=== PATIENT | female | born 1930 | race Caucasian/White ===

== ENCOUNTER 2019-01-08 16:56 | Inpatient (IN) ==
[2019-01-08] MEDS ORDERED: FENTANYL IV ONE (17:10)
[2019-01-08 17:53] LABS: BASO# 0.05 X1000 (0.0-0.2); BASO% 0.6 % (0.0-0.8); EOS# 0.16 X1000 (0.0-0.7); EOS% 1.9 % (0.0-10.0); HEMOGLOBIN 10.9 g/dL (12.0-16.0); IMM GRAN# 0.03 X1000 (0.0-0.04); IMM GRAN% 0.4 % (0.0-0.5); LYMPH# 1.48 X1000 (1.2-3.4); LYMPH% 17.4 % (20.5-51.1); MCH 24.7 PG (27-31); MCHC 30.3 g/dL (33-37); MCV 81.4 FL (81-99); MONO# 0.81 X1000 (0.11-0.59); MONO% 9.5 % (1.7-9.3); MPV 10.2 FL (7.4-10.4); NEUT# 5.98 X1000 (1.4-6.5); NEUT% 70.2 % (42.2-75.2); PLT 491 X1000 (130-400); RBC 4.42 XMIL (4.2-5.4); RDW 14.5 % (11.5-14.5); WBC 8.51 X1000 (4.8-10.8)
--- NOTE | 2019-01-08 18:06 | Diag Imaging Result Doc PS360 ---
EXAM: XRAY PELVIS W/HIP 2-3VW LT HISTORY: L hip deformity TECHNIQUE: Pelvis and left hip, three views COMPARISON: 11/12/2017 FINDINGS: There is an intertrochanteric fracture to the left hip. Femoral head remains in the acetabulum. Femoral shaft is rotated and superiorly placed. Prior surgery to the right hip. Severe degenerative changes in the lower lumbar spine. IMPRESSION: Intertrochanteric fracture to the left hip Electronically signed by Jose Martin Cannon 01/08/2019 6:03 PM
[2019-01-08 18:07] LABS: INR 1.07; PTT 32.1 Seconds (22.3-41.8)
[2019-01-08] MEDS ORDERED: CATAPRES PO ONE (18:10)
[2019-01-08 18:12] LABS: URINE SOURCE CATH
[2019-01-08 18:24] LABS: AGAP 19; ALB/GLOB RATIO 1.3; ALBUMIN 4.6 g/dL (3.5-5.0); ALKALINE PHOSPHATASE 59 U/L (32-104); BUN 15 mg/dL (8-22); CALCIUM 9.6 mg/dL (8.8-10.2); CHLORIDE 92 mmol/L (98-107); COSMO 272; CREATININE 0.8 mg/dL (0.5-0.9); ESTIMATED GFR > 60; GLUCOSE 177 mg/dL (70-104); GOT 15 U/L (10-30); GPT 9 U/L (10-36); POTASSIUM 3.7 mmol/L (3.5-5.1); SODIUM 133 mmol/L (136-145); TCO2 22 mmol/L (25-35); TOTAL BILIRUBIN 0.33 mg/dL (0.20-1.00); TOTAL PROTEIN 8.2 g/dL (6.3-8.3)
[2019-01-08 18:32] LABS: BILIRUBIN URINE NEGATIVE (NEGATIVE); BLOOD URINE TRACE (NEGATIVE); COLOR YELLOW; GLUCOSE URINE TRACE mg/dL (NEGATIVE); KETONE URINE NEGATIVE (NEGATIVE); LEUKOCYTES URINE NEGATIVE (NEGATIVE); NITRITE URINE NEGATIVE (NEGATIVE); PH URINE 6.5; PROTEIN URINE 50 mg/dL (NEGATIVE); TURBIDITY URINE CLEAR (CLEAR); UR EPITHELIAL CELLS <10 /HPF (<10); URINE BACTERIA NEGATIVE /HPF; URINE RBC <10 /HPF (<10); URINE WBC <10 /HPF (<10); UROBILINOGEN URINE NORMAL (NORMAL)
--- NOTE | 2019-01-08 19:09 | Diag Imaging Result Doc PS360 ---
EXAM : CT HEAD/C-SPINE W/O CONTRAST HISTORY: fall, hit head, on blood thinners TECHNIQUE: 1. CT head without contrast 2. CT cervical spine without contrast COMPARISON: None. FINDINGS: Head: No parenchymal hemorrhage. No epidural or subdural hematoma. No subarachnoid hemorrhage. No mass identified on this noncontrasted exam. No hydrocephalus. No skull fracture. Complete opacification of the left maxillary sinus. Cervical spine: There is good alignment to the cervical spine. No precervical soft tissue swelling. No subluxation. No fracture. IMPRESSION: Head: No hemorrhage. No injury. Cervical spine: No acute fracture. This exam was performed using automated exposure control, adjustment of mA or kV according to patient size, and/or use of iterative reconstruction technique. Electronically signed by Jose Martin Cannon 01/08/2019 7:06 PM
--- NOTE | 2019-01-08 19:12 | Diag Imaging Result Doc PS360 ---
EXAM: CT PELVIS W/O CONTRAST HISTORY: Hip fracture TECHNIQUE: CT pelvis without contrast COMPARISON: Recent plain films FINDINGS: There is an intertrochanteric fracture to the left hip. The femoral head remains in the acetabulum. The femoral shaft is rotated and superiorly placed. There has been prior surgery to the right hip. Severe degenerative changes in the lower lumbar spine. IMPRESSION: Intertrochanteric fracture to the left hip. This exam was performed using automated exposure control, adjustment of mA or kV according to patient size, and/or use of iterative reconstruction technique. Electronically signed by Jose Martin Cannon 01/08/2019 7:10 PM
--- NOTE | 2019-01-08 19:13 | Diag Imaging Result Doc PS360 ---
EXAM: FEMUR MIN 2 VIEWS LEFT HISTORY: Fracture TECHNIQUE: Left femur, two views COMPARISON: None. FINDINGS: There is an intertrochanteric fracture to the left hip. The femoral head remains in the acetabulum. The femoral shaft is rotated and superiorly placed. Prior orthopedic replacement of the left knee. IMPRESSION: Intertrochanteric fracture to the left hip. Electronically signed by Jose Martin Cannon 01/08/2019 7:10 PM
--- NOTE | 2019-01-08 19:13 | Diag Imaging Result Doc PS360 ---
EXAM: KNEE 1-2 VIEWS-LEFT HISTORY: Fracture TECHNIQUE: Left knee, two views COMPARISON: None. FINDINGS: No fracture. No dislocation. There has been prior orthopedic replacement of the knee. Good alignment to the femoral and tibial components. IMPRESSION: No acute bony injury. Electronically signed by Jose Martin Cannon 01/08/2019 7:11 PM
--- NOTE | 2019-01-08 19:16 | Diag Imaging Result Doc PS360 ---
EXAM: CHEST-PORTABLE HISTORY: hip fx TECHNIQUE: Chest single view COMPARISON: 11/20/2018 FINDINGS: The lungs are well expanded. Mild increased interstitial markings. Heart is borderline mildly prominent. Scattered granuloma. Tiny left effusion. There are multiple old rib fractures. No pneumothoraces. IMPRESSION: Pulmonary edema. Electronically signed by Jose Martin Cannon 01/08/2019 7:13 PM
--- NOTE | 2019-01-08 19:27 | PROVIDER DOCUMENTATION ---
This chart was entered by Hien Vega Scribe, acting as scribe for Dread Greer CRNP. HPI-Musculoskeletal Pain/Inj - GENERAL Stated Complaint: FALL - HIP PAIN Time Seen by Provider: 01/08/19 17:01 Source: patient, EMS (first response) - HX OF PRESENT ILLNESS-MUSKULOSKELTAL Nature of Presenting Problem: 88 yowf presents to the ed via ems (first response) post fall while outside today. pt sts she tripped over the concrete and fell on left hip. pt has obvious deformity of left hip and skin tear to left elbow. pt sts hit her head but denies LOC. pt can not bear weight to LLE Quality of Pain: reports: aching Severity in ED: moderate Onset/Duration: just prior to arrival Timing: still present, intermittent Modifying Factors: improves with: immobilization. worse with: movement, palpation Any recent injury?: Yes (fall at home) Locality of Occurance: Home Similar Symptoms Previously?: No Recently seen or treated by another doctor?: No - FALL INJURY Location of Pain/Injury: reports: upper extremity (left elbow), lower extremity (left hip) Reason for Fall: reports: tripped Symptoms prior to fall:: reports: none Loss of Consciousness: no loss of consciousness Injury Associated Symptoms: reports: joint pain, snap/crack/pop sensation, unable to bear weight, trouble walking. denies: back/neck pain, chest pain, dizziness, headaches, nausea, shortness of breath, vomiting - HIP/PELVIS PAIN/INJURY Hip Pain Location: reports: hip (L) Context / Method of Injury: reports: fall Associated Symptoms: reports: denies symptoms - UPPER EXTREMITY PAIN/INJURY Extremities Pain Location: elbow: left (skin tear) Context / Method of Injury: reports: fell Associated Symptoms: reports: denies symptoms Review of Systems - Adult - REVIEW OF SYSTEMS - ADULT Constitutional: reports: no symptoms reported Eyes: denies: blurred vision, double vision Ears, Nose, Mouth & Throat: reports: no symptoms reported Cardiovascular: denies: chest pain, palpitations, syncope Respiratory: denies: cough, shortness of breath, wheezing Gastrointestinal: denies: abdominal pain, diarrhea, nausea, vomiting Genitourinary: reports: no symptoms reported Musculoskeletal: reports: see HPI (left hip/left elbow), joint pain. denies: back pain, neck pain Integumentary: reports: see HPI, other (skin tear noted left elbow) Neurological: denies: dizziness/vertigo, headache/migraines Psychiatric: reports: no symptoms reported Endocrine: reports: no symptoms reported Hematologic/Lymphatic: reports: no symptoms reported Allergic/Immunologic: reports: no symptoms reported All Other Systems: Reviewed and Negative Past History - Adult - PAST MEDICAL HISTORY-ADULT Review of Records: reports: Old Records Reviewed, Nursing Assessment Review, Medications Reviewed, Social history reviewed & non-contributory. Major Childhood Illnesses: reports: denies history Cardiovascular: reports: HTN, hyperlipidemia Respiratory: reports: denies history Gastrointestinal: reports: GERD Obstetrical/Gynecological: reports: denies history Genitourinary: reports: denies history Musculoskeletal: reports: denies history Neurological: reports: denies history Endocrine/Immune: reports: denies history Other Conditions: reports: other cancer (skin), deaf/hard of hearing - PRIOR SURGERIES/PROCEDURES Surgical/Procedure History: reports: orthopedic (extremity), joint replacement, back/neck - IMMUNIZATION STATUS Childhood Immunizations: See Nurse Assessment Flu Vaccine: See Nurse Assessment - FAMILY HISTORY Family History: reviewed, not pertinent - SOCIAL HISTORY Smoking: denies Substance Use: denies Alcohol Use Frequency: never Living Situation: family Physical Exam-Injury Related - Physical Exam-Injury Related Initial Vital Signs Reviewed: Yes General Appearance: alert, mild distress, obese Eyes: PERRL/EOMI, pink conjunctivae Head, Ears, Nose, Mouth & Throat: moist mucous membranes Neck: non-tender, full range of motion, supple, normal inspection Respiratory: chest non-tender, lungs clear, normal breath sounds Cardiovascular: normal peripheral pulses, regular rate, rhythm Chest/Breast: deferred Abdominal Exam: normal bowel sounds, non tender, soft Female Genitalia/Pelvic Exam: deferred Rectal Exam: deferred Hemoccult Exam: deferred Lymphatic: no adenopathy Back Exam: other (no exam done pt has obvious deformity to left hip and is lying on her back on the stretcher. pt has no complaint of back pain) Extremity: normal capillary refill, deformity (left hip), other (left elbow skin tear). negative: normal range of motion, normal gait, normal inspection Integumentary: normal color, warm/dry Neurologic: grossly normal Psych/Mental Status: normal mood/affect, normal thought content, normal thought process, oriented x 3 - Glascow Coma Score Best Eye Response (Pushpa): (4) open spontaneously Best Verbal Response (Pushpa): (5) oriented Best Motor Response (Pushpa): (6) obeys commands Pushpa Total: 15 Progress - PLAN OF CARE/RESULTS Progress/Plan/Lab Results: Vital Signs - 8 hr 01/08/19 17:15 01/08/19 17:16 01/08/19 17:19 Temperature 98.8 F Pulse Rate 83 83 82 Respiratory Rate 19 24 21 Blood Pressure 202/96 202/96 O2 Sat by Pulse Oximetry 93 L 94 L 01/08/19 17:31 01/08/19 17:45 01/08/19 18:00 Temperature Pulse Rate 82 78 87 Respiratory Rate 30 H 18 20 Blood Pressure O2 Sat by Pulse Oximetry 94 L 91 L 90 L Laboratory Results - last 24 hr 01/08/19 01/08/19 01/08/19 17:40 17:40 17:40 WBC 8.51 RBC 4.42 Hgb 10.9 L Hct 36.0 L MCV 81.4 MCH 24.7 L MCHC 30.3 L RDW Std Deviation 14.5 Plt Count 491 H MPV 10.2 Immature Gran % (Auto) 0.4 Neut % (Auto) 70.2 Lymph % (Auto) 17.4 L Dawson % (Auto) 9.5 H Eos % (Auto) 1.9 Baso % (Auto) 0.6 Immature Gran # (Auto) 0.03 Neut # (Auto) 5.98 Lymph # (Auto) 1.48 Dawson # (Auto) 0.81 H Eos # (Auto) 0.16 Baso # (Auto) 0.05 PT 14.0 INR 1.07 PTT (Actin FS) 32.1 Sodium 133 L Potassium 3.7 Chloride 92 L Carbon Dioxide 22 L Anion Gap 19 BUN 15 Creatinine 0.8 Estimated GFR/1.73 m2 > 60 BUN/Creatinine Ratio 19 Glucose 177 H Calculated Osmolality 272 Calcium 9.6 Total Bilirubin 0.33 AST 15 ALT 9 L Alkaline Phosphatase 59 Total Protein 8.2 Albumin 4.6 Globulin 3.6 Albumin/Globulin Ratio 1.3 Urine Source Urine Color Urine Turbidity Urine pH Ur Specific Totz Urine Protein Ur Glucose (Stick) Ur Ketones (Stick) Urine Blood Urine Nitrite Urine Bilirubin Urobilinogen Dipstick Urine Leukocytes Urine WBC (Auto) Urine RBC (Auto) U Epithel Cells (Auto) Urine Bacteria (Auto) Blood Type Antibody Screen 01/08/19 01/08/19 17:40 18:03 WBC RBC Hgb Hct MCV MCH MCHC RDW Std Deviation Plt Count MPV Immature Gran % (Auto) Neut % (Auto) Lymph % (Auto) Dawson % (Auto) Eos % (Auto) Baso % (Auto) Immature Gran # (Auto) Neut # (Auto) Lymph # (Auto) Dawson # (Auto) Eos # (Auto) Baso # (Auto) PT INR PTT (Actin FS) Sodium Potassium Chloride Carbon Dioxide Anion Gap BUN Creatinine Estimated GFR/1.73 m2 BUN/Creatinine Ratio Glucose Calculated Osmolality Calcium Total Bilirubin AST ALT Alkaline Phosphatase Total Protein Albumin Globulin Albumin/Globulin Ratio Urine Source CATH Urine Color YELLOW Urine Turbidity CLEAR Urine pH 6.5 Ur Specific Totz 1.010 Urine Protein 50 A Ur Glucose (Stick) TRACE Ur Ketones (Stick) NEGATIVE Urine Blood TRACE A Urine Nitrite NEGATIVE Urine Bilirubin NEGATIVE Urobilinogen Dipstick NORMAL Urine Leukocytes NEGATIVE Urine WBC (Auto) <10 Urine RBC (Auto) <10 U Epithel Cells (Auto) <10 Urine Bacteria (Auto) NEGATIVE Blood Type A POSITIVE Antibody Screen NEGATIVE Orders Category Date Time Status Meza's Traction Placement ONCE Care 01/08/19 18:26 Active Consent for Surgery DIRECTED Care 01/08/19 18:26 Active Gr Cath Insertion ORDERED Care 01/08/19 17:18 Active Ice Pack to affected area DIRECTED Care 01/08/19 18:26 Active NPO Except MEDICATIONS Diet 01/09/19 00:01 Active CHEST-PORTABLE [RAD] Stat Exams 01/08/19 18:[address] HEAD/C-SPINE W/O CONTRAST [CT] Stat Exams 01/08/19 17:[address] PELVIS W/O CONTRAST [CT] Stat Exams 01/08/19 17:55 Completed FEMUR MIN 2 VIEWS LEFT [RAD] Stat Exams 01/08/19 17:55 Completed KNEE 1-2 VIEWS-LEFT [RAD] Stat Exams 01/08/19 18:25 Completed XRAY PELVIS W/HIP 2-3VW LT [RAD] Stat Exams 01/08/19 17:11 Completed CBC WITH DIFF [HEME] Stat Lab 01/08/19 17:40 Completed COMPREHENSIVE METABOLIC PANEL [CHEM] Stat Lab 01/08/19 17:40 Completed PROTIME WITH INR [COAG] Stat Lab 01/08/19 17:40 Completed PTT [COAG] Stat Lab 01/08/19 17:40 Completed TYPE & SCREEN [BBK] Stat Lab 01/08/19 17:40 Completed URINALYSIS W/POSS RFLX CULT [URINALYSIS] Stat Lab 01/08/19 18:03 Completed Clonidine [Catapres] Med 01/08/19 18:10 Discontinued 0.1 mg PO NOW ONE Fentanyl Med 01/08/19 17:10 Discontinued 50 microgm IV NOW ONE EKG [EKG] Stat Ther 01/08/19 17:19 Ordered Result Diagrams: 01/08/19 17:40 01/08/19 17:40 - REASSESSMENT Reassessment #1 Time Reassessed: 18:09 (updated pt of results and need for admission. Pt made aware of NPO status after midnight) - XRAY 1 XRAY: Left XRAY Study: Femur Impression: See EMR Report (FINDINGS: There is an intertrochanteric fracture to the left hip. The femoral head remains in the acetabulum. The femoral shaft is rotated and superiorly placed. Prior orthopedic replacement of the left knee. IMPRESSION: Intertrochanteric fracture to the left hip. Electronically signed by Jose Martinchinyere Cannon 01/08/2019 7:10 PM) 2 XRAY: Left XRAY Study: Knee (FINDINGS: No fracture. No dislocation. There has been prior orthopedic replacement of the knee. Good alignment to the femoral and tibial components. IMPRESSION: No acute bony injury. Electronically signed by Jose Martinchinyere Cannon 01/08/2019 7:11 PM) 3 XRAY Study: Chest Impression: See EMR Report (FINDINGS: The lungs are well expanded. Mild increased interstitial markings. Heart is borderline mildly prominent. Scattered granuloma. Tiny left effusion. There are multiple old rib fractures. No pneumothoraces. IMPRESSION: Pulmonary edema. Electronically signed by Jose Martinchinyere Cannon 01/08/2019 7:13 PM) - CT/MRI 1 CT Study: Cervical Spine, Head Impression: See EMR Report (FINDINGS: Head: No parenchymal hemorrhage. No epidural or subdural hematoma. No subarachnoid hemorrhage. No mass identified on this noncontrasted exam. No hydrocephalus. No skull fracture. Complete opacification of the left maxillary sinus. Cervical spine: There is good alignment to the cervical spine. No precervical soft tissue swelling. No subluxation. No fracture. IMPRESSION: Head: No hemorrhage. No injury. Cervica l spine: No acute fracture. This exam was performed using automated exposure control, adjustment of mA or kV according to patient size, and/or use of iterative reconstruction technique. Electronically signed by Jose Martin Cannon 01/08/2019 7:06 PM) 2 CT Study: Pelvis Impression: See EMR Report (FINDINGS: There is an intertrochanteric fracture to the left hip. The femoral head remains in the acetabulum. The femoral shaft is rotated and superiorly placed. There has been prior surgery to the right hip. Severe degenerative changes in the lower lumbar spine. IMPRESSION: Intertrochanteric fracture to the left hip. This exam was performed using automated exposure control, adjustment of mA or kV according to patient size, and/or use of iterative reconstruction technique. Electronically signed by Jose Martin Cannon 01/08/2019 7:10 PM) - CONSULTS/PCP/HOSPITALIST Notification #1 *Consult/PCP/Hospitalist*: ortho dr bauer Time Discussed: 17:52 (admit hospitalist, NPO after midnight) Reason/Comments: phone consult Consult Disposition: Admit #2 Consult: ANAID Knox hospitalist Time Discussed: 18:09 (call back once the CMP is back) #3 Consult: Dr Varela Time Discussed: 19:27 Consult Disposition: Will see in ED, Admit Departure - Departure Date of Disposition Decision: 01/08/19 Time of Disposition Decision: 18:10 DIAGNOSIS: Hip fracture Qualifiers: Encounter type: initial encounter Fracture type: closed Laterality: left Qualified Code(s): S72.002A - Fracture of unspecified part of neck of left femur, initial encounter for closed fracture Disposition: ADMITTED INPATIENT Certified Medical Emergency: Emergent Condition: Fair Referrals and Follow-Ups: Marissa Vallejo MD [Primary Care Provider] - - Critical Care Note This patient required my direct & personal management of CC.: No Attestation - Physician/ BERNARDO Attestation Patient care was provided by Advanced Practice Provider:: Yes Advanced Practice Provider:: Dread Greer Advanced Practice Provider documentation review:: The Mid-level provider documentation, treatment plan and medical decision making was reviewed by the physician who agrees with all treatment and medical decision making by the MLP. The physician spent face to face time with patient:: No Advanced Practice Provider documentation review:: Supervising physician onsite and consulted in the evaluation and care of this patient. The physician did not have a face to face encounter with the patient. This chart was documented by the indicated scribe, (Hien Vega Scribe) and accurately reflects the services I performed and decisions made by , Dread Greer CRNP, as attested by the provider's signature.
--- NOTE | 2019-01-08 20:30 | ORTHOPAEDICS CONSULTATION ---
DATE: 01/08/2019 CONSULTING PHYSICIAN: [facility]. REASON FOR CONSULTATION: Left hip fracture. PAST MEDICAL HISTORY: 1. Hypertension. 2. Hyperlipidemia. 3. Hypothyroidism. 4. Diabetes type 2. 5. History of TIA in 2012. PAST SURGICAL HISTORY: 1. Closed reduction intramedullary nailing of right hip fracture about 6 years ago. 2. Bilateral total knee arthroplasties done by DR. Dorsey. 3. Right shoulder surgery with DR. Wong. 4. Lumbar spine surgery x2. MEDICATIONS: 1. Plavix to aspirin 81 mg. 2. Metformin. 3. See chart for remaining medications. ALLERGIES: Sulfa. SOCIAL HISTORY: The patient lives in [place] alone with her 2 cats. She is a community ambulator without assistive device. She still drives. She denies any tobacco or alcohol use. She is fairly active for her age. FAMILY HISTORY: Noncontributory. REVIEW OF SYSTEMS: Negative other than what is listed in history of present illness. CHIEF COMPLAINT: Left hip pain. HISTORY OF PRESENT ILLNESS: Ms. Teixeira is an 88-year-old lady who sustained a same-level fall implant around her driveway earlier this afternoon. She states she fell onto her left hip, unable to get up. She was then taken to the ER by ambulance where x-rays demonstrated left intertrochanteric femur fracture. Orthopedic surgery was thus consulted. The patient denies hitting her head or any loss of consciousness. She has no other complaints. She had a previous closed reduction and nailing of a hip fracture on the right side about 6 years ago in [place] and states she stayed at an inpatient rehab facility for about 5 or 6 weeks afterward regaining her strength but she is doing well with it now. PHYSICAL EXAMINATION: General: Ms. Teixeira is an 88-year-old female who appears well nourished, well developed, no acute distress. She is awake, alert, oriented x3. Very polite, cooperative during examination. Vital Signs: See chart. HEENT: Normocephalic and atraumatic. Respiratory: Nonlabored breathing. Cardiovascular: Regular rate and rhythm. Extremities: Examination of left lower extremity reveals skin to be intact. The patient has a shortened and externally rotated deformity of the left hip. She is tender to palpation around her hip. She has a well-healed surgical incision from her total knee replacement. She is nontender on her knee, leg, ankle and foot. Thigh and calf were soft and compressible. Motor is intact, EHL, tibialis anterior, gastrocsoleus complex. Sensation intact to light touch L3-S1. Dorsalis pedis pulse palpable and equal bilaterally. IMAGING: AP and lateral of the left hip were reviewed demonstrating a comminuted peritrochanteric femur fracture with shortening external rotation of the fracture site. LABORATORY DATA: Labs pending. ASSESSMENT: 88-year-old female with left peritrochanteric femur fracture. PLAN: 1. A long discussion was had with the patient regarding the diagnosis and treatment options. Given her fracture pattern, she is going to need open versus closed reduction and intramedullary nailing of her left hip fracture. The risks, benefits, alternative therapies were discussed with the patient regarding surgery. Risks of surgery include, but are not limited to risk of bleeding, infection, damage to nerves and vessels around the area, continued pain following surgery, malunion, nonunion, and need for revision surgery. There is also risk of anesthesia including blood clot, stroke, heart attack, even . The patient understands these risks. All questions were answered. Informed consent was obtained. 2. We will obtain a CT scan of the pelvis to help with preoperative planning. We will also get full-length femur films and knee films since she has a total knee arthroplasty on that side. 3. Admit to hospitalist. Appreciate recommendations and surgical clearance. 4. Make NPO at midnight tonight for planned surgery tomorrow afternoon as long she is cleared and OR space is available. 5. Meza's traction to the left lower extremity. 6. Ice the left lower extremity. 7. Hold Plavix and chemical anticoagulation.
[2019-01-08] MEDS ORDERED: MORPHINE IV PRN (21:27)
[2019-01-08] MEDS: ZOFRAN IV PRN (22:01)
--- NOTE | 2019-01-08 23:03 | HISTORY AND PHYSICAL ---
PRIMARY CARE PHYSICIAN: Dr. Marissa Vallejo. CHIEF COMPLAINT: Fall. HISTORY OF PRESENTING ILLNESS: An 88-year-old female with a history of hypertension, hyperlipidemia, diabetes mellitus type 2, and TIA, who apparently had a fall earlier today. She states that she was watering her strong and then somehow she fell and she landed on the concrete. She developed moderate amount of pain on left hip region. She was brought to the emergency department. She had imaging done which did show a left hip fracture. Her case was discussed with Orthopedics, who recommended admission for further management. At the time of my examination, patient denied any headache, fever, chills, chest pain, shortness of breath, hemoptysis or weight changes, but complained left hip pain. PAST MEDICAL HISTORY: Includes hypertension, hyperlipidemia, hypothyroidism, diabetes mellitus type 2, TIA. PAST SURGICAL HISTORY: Right hip nailing, bilateral total knee arthroplasty, right shoulder surgery, ankle surgery, cataract surgery. ALLERGIES TO: Sulfa. CURRENT MEDICATIONS: Lotrel 5-20 one p.o. at bedtime, spironolactone HCT 25 mg, 1 p.o. daily, aspirin 81 mg p.o. daily, Plavix 75 mg p.o. daily, levothyroxine 75 mcg p.o. q.a.m., metformin 500 mg p.o. b.i.d., metoprolol 75 mg p.o. q.a.m., omeprazole 40 mg p.o. daily, and pravastatin 40 mg p.o. at bedtime, Ambien 10 mg p.o. at bedtime. SOCIAL HISTORY: No history of smoking, alcohol or illicit drug use. FAMILY HISTORY: No history of coronary disease. REVIEW OF SYSTEMS: Fourteen-point review of systems is as in HPI. Other systems negative. PHYSICAL EXAMINATION: GENERAL: Cooperative, friendly female. She is resting more comfortably now. VITAL SIGNS: Temperature 98.8 degrees, pulse 82, respirations 21, blood pressure 202/96. HEENT: Extraocular movements intact. PERRLA. NECK: No masses. CHEST: Clear to auscultation. CARDIOVASCULAR: Regular rate and rhythm. ABDOMEN: Soft. Positive bowel sounds. EXTREMITIES: Left hip tenderness. NEUROLOGIC: She is awake, alert, oriented x2. GENITOURINARY: No bladder distention. SKIN: Warm. LABORATORIES AND STUDIES: WBCs 8.51, hemoglobin 10.9, hematocrit 36.0, platelets 491,000. Sodium 133, potassium 3.7, chloride 92, CO2 is 22, BUN is 15, creatinine 0.8. Glucose is 177. Pelvis CT shows intertrochanteric fracture of the left hip. ASSESSMENT: An 88-year-old elderly female with a history of hypertension, hyperlipidemia, diabetes mellitus type 2, who apparently had a fall earlier today. She was brought to the emergency department. She had imaging done which did show a left hip fracture. Subsequently, she will require admission for further management. 1. Status post mechanical fall. 2. Left hip fracture. 3. Diabetes mellitus type 2. 4. Hypertension. PLAN: 1. We will admit patient to medical floor with telemetry. 2. Continue with keeping patient NPO and giving her adequate pain control. 3. Orthopedics has already evaluated patient. 4. Monitor blood glucose and put the patient on sliding scale insulin regimen. 5. Monitor blood pressure. Resume antihypertensive agent. 6. We will put patient on deep venous thrombosis prophylaxis with sequential compression devises and Lovenox after her surgery. 7. We will continue to follow and reassess. Make further recommendation based on patient's clinical course. cc: Michael Varela MD
[2019-01-09] MEDS ORDERED: MORPHINE IV ONE (01:12)
[2019-01-09] MEDS ORDERED: OFIRMEV 1000 MG/ISOTONIC SOLN 1,000 MG/100 ML BOTTLE IV ONE (01:15)
[2019-01-09] MEDS: ZOFRAN IV PRN ×2 (01:50→20:59)
[2019-01-09] MEDS: MORPHINE IV PRN ×3 (05:41→13:18)
[2019-01-09 06:35] LABS: BASO# 0.02 X1000 (0.0-0.2); BASO% 0.2 % (0.0-0.8); EOS# 0.01 X1000 (0.0-0.7); EOS% 0.1 % (0.0-10.0); HEMATOCRIT 30.7 % (37.0-47.0); HEMOGLOBIN 9.3 g/dL (12.0-16.0); IMM GRAN# 0.03 X1000 (0.0-0.04); IMM GRAN% 0.3 % (0.0-0.5); LYMPH# 1.39 X1000 (1.2-3.4); LYMPH% 12.1 % (20.5-51.1); MCH 24.5 PG (27-31); MCHC 30.3 g/dL (33-37); MCV 80.8 FL (81-99); MONO# 0.94 X1000 (0.11-0.59); MONO% 8.2 % (1.7-9.3); MPV 10.5 FL (7.4-10.4); NEUT# 9.06 X1000 (1.4-6.5); NEUT% 79.1 % (42.2-75.2); PLT 421 X1000 (130-400); RDW 14.4 % (11.5-14.5); WBC 11.45 X1000 (4.8-10.8)
[2019-01-09 06:46] LABS: AGAP 14; BUN 12 mg/dL (8-22); CALCIUM 8.8 mg/dL (8.8-10.2); CHLORIDE 91 mmol/L (98-107); COSMO 263; CREATININE 0.7 mg/dL (0.5-0.9); ESTIMATED GFR > 60; GLUCOSE 167 mg/dL (70-104); POTASSIUM 4.1 mmol/L (3.5-5.1); SODIUM 129 mmol/L (136-145); TCO2 24 mmol/L (25-35)
[2019-01-09] MEDS: HUMULIN R SUBQ SCH (07:00)
[2019-01-09] MEDS ORDERED: FLU VACCINE IM ONE (08:17)
[2019-01-09] MEDS ORDERED: DIPRIVAN 1% ONE (15:11)
[2019-01-09] MEDS ORDERED: SUFENTA ONE (15:42)
[2019-01-09] MEDS ORDERED: KEFZOL 1 GM/D5W 1 GM/50 ML IVPB ONE (15:58)
[2019-01-09] MEDS ORDERED: DECADRON ONE (16:43)
[2019-01-09] MEDS ORDERED: ZOFRAN ONE ×2 (16:43→18:56)
[2019-01-09] MEDS ORDERED: SENSORCAINE 0.5%-EPI 1:200,000 ONE (17:41)
--- NOTE | 2019-01-09 17:41 | ORTHOPAEDICS PROGRESS NOTE ---
DATE: 01/09/2019 SUBJECTIVE: No acute events overnight. Patient states she is in a good bit of pain secondary to her hip fracture. She has been n.p.o. since midnight. She is ready for surgery. OBJECTIVE: General: No acute distress. Extremities: Left lower extremity shows skin intact. Patient has some ecchymosis over the lateral aspect of her thigh. Her thigh is swollen; however, soft and compressible. Nontender at her knee, leg, ankle, or foot. Motor intact, EHL, tibialis anterior, gastrocsoleus complex. Sensation intact to light touch L3-S1. Dorsalis pedis pulse palpable. LABS: White count 11.4, hematocrit 31. ASSESSMENT: An 88-year-old female with left comminuted intertrochanteric femur fracture. PLAN: 1. The patient has been n.p.o. since midnight. We will plan on open versus closed reduction and intramedullary nailing of her left intertrochanteric femur fracture this afternoon when OR is available. 2. Hold chemical DVT prophylaxis until postop. 3. Ice the left lower extremity. 4. Nonweightbearing of the left lower extremity until postop. 5. Disposition. manager recovery is talking with the patient about placement afterwards as she will likely need to go to a alf facility. They have talked with the [facility] and are waiting for availability for a bed.
[2019-01-09] MEDS ORDERED: MILK OF MAGNESIA PO PRN (18:22)
[2019-01-09] MEDS ORDERED: MORPHINE IV PRN (18:22)
[2019-01-09] MEDS ORDERED: NAROPIN 0.2% ONE (19:04)
--- NOTE | 2019-01-09 19:11 | Diag Imaging Result Doc PS360 ---
XRAY PELVIS W/HIP 2-3VW LT - 01/09/2019 INDICATION: Post op fracture. To be done in PACU TECHNIQUE: Two views COMPARISON: 01/08/2019 FINDINGS: There is a new left femoral neck stabilization evan. Alignment is anatomic. No hardware fracture or loosening. No dislocation. The right side is unremarkable. IMPRESSION: No complication. Electronically signed by Shakeel Castaneda 01/09/2019 7:08 PM
--- NOTE | 2019-01-09 20:13 | OPERATIVE NOTE ---
PROCEDURE DATE: 01/09/2019 PREOPERATIVE DIAGNOSIS: Left peritrochanteric femur fracture. POSTOPERATIVE DIAGNOSIS: Left peritrochanteric femur fracture. PROCEDURE: Open reduction and intramedullary nailing of left peritrochanteric femur fracture. ATTENDING SURGEON: Aguila Boss MD DOCTOR OF RADIOLOGY: ANAID Gastelum, whose assistance was needed for retraction, maintenance of reduction and placement of implants. ANESTHESIA: General endotracheal anesthesia. COMPLICATIONS: None. SPECIMENS: None. DRAINS: None. BLOOD LOSS: 150 mL. IMPLANTS: Synthes left-sided trochanteric femoral nail measuring 360 mm x 11 mm with a 95 mm blade. INDICATIONS FOR PROCEDURE: Ms. Teixeira is an 88-year-old lady who sustained the above injury after same-level fall 1 day prior. Given her fracture patterns, decision was made to proceed with open versus closed reduction, fixation with intramedullary nail. Risks, benefits, and alternative therapies were discussed with patient regarding surgery. Risks of surgery include, but are not limited to, risks of bleeding, infection, damage to nerves and vessels around the area, continued pain following surgery, need for revision surgery. There is also a risk of anesthesia including blood clot, stroke, heart attack, even . The patient understands these risks. All questions were answered. Informed consent was obtained. PROCEDURE IN DETAIL: Ms. Teixeira is identified by wrist band and greeted in preoperative holding area on 01/09/2019. Her left lower extremity, which was the operative site, was marked with indelible ink per [facility] Sign Your Site protocol. Following this, the patient was transferred back to the operating room for surgery. Upon entering the OR, general endotracheal anesthesia was induced on her bed. She then had bilateral feet placed in the boot holders for the [place] table and was transferred over to the [place] table in routine fashion. Her legs were placed in a scissor position. Traction was pulled on the left leg to help maintain reduction. Fluoroscopy was brought in to confirm length and alignment of the fracture and reduction. When we were satisfied with this, the left lower extremity was then prepped and draped in routine sterile fashion. Formal time-out was performed confirming correct patient, procedure, operative site, operative side, administration of perioperative antibiotics. Everyone was in agreement. Patient received 2 g of Ancef prior to incision. A 10 blade knife was used to make a standard 4 cm incision just proximal to the tip of the greater trochanter. Knife was used to dissect through skin, subcutaneous tissue, and a longitudinal split in the fascia. At this time, we then manipulated the fracture and attempted to place the guide pin; however, she had significant comminution along the peritrochanteric region and subtrochanteric region of the femur. Given this, we were unable to maintain reduction, and decision was made to open up the fracture to assist with reduction. A 8 cm incision was made on the lateral aspect of the thigh at the fracture site. IT band was incised. We then elevated vastus lateralis up anteriorly over the femur, and we were visualizing the fracture site. Once this was done, a bone hook was placed around the medial calcar cortex to help maintain reduction. At this time, we had better control of the fracture, and we were able to drive our guide pin down through our medial trochanteric starting point. When we were satisfied with positions of the guide pin, entry reamer was used to enter the canal. At this time the finger reduction tool and guidewire were then placed across the fracture site down the femur to the knee. A measuring device was used to measure the length of the nail, which was found to be 360 mm. At this time we then proceeded with reaming starting with a 12 mm reamer, taken down to the knee. Synthes 360 x 11 mm TFN nail was then opened and assembled on the back table. We then impacted the nail in position in routine fashion. Once it was driven down to the appropriate level, a guide pin was placed up into the femoral head in routine fashion. AP and lateral x-rays were taken confirming center placement of the pin in the head. When we were satisfied with the placement of the pin, it was measured and found to measure 105 mm. We thus opened the 95 mm helical blade. It was then impacted in place. At this time, we used a compression mechanism to gain some compression across the fracture site and the locking screw was taken down all the way and then loosened half a turn in order to make a dynamic fixed angle device. Once this was done, we then proceeded with placing a single distal interlocking screw in perfect [place] fashion. At this time final AP and lateral views of the hip, fracture site and distally at the knee were obtained and saved. All wounds were copiously irrigated with normal saline. We then proceeded with closure of the wound using 0 Vicryl suture for closure of the IT band, 2-0 Vicryl suture for subcutaneous tissue closure and jesus for skin closure, 30 mL of 0.25% Marcaine with epinephrine were then injected around all incision sites. Wounds were then dressed with Xeroform, 4x4s, [place] island dressing. At this time, patient was then transferred over hospital stretcher, extubated, and taken to recovery in stable condition. There were no acute complications during the procedure. All sponge and sharp counts were correct at conclusion of procedure.
[2019-01-09] MEDS ORDERED: NS 1,000 ML IV SCH (20:45)
--- NOTE | 2019-01-09 20:57 | PROGRESS NOTE ---
DATE: 01/09/2019 SUBJECTIVE: The patient is resting comfortably in bed. No acute events noted overnight. OBJECTIVE: Vital Signs: Temperature 98.6 degrees, blood pressure 137/65, heart rate 97, respirations 24, O2 saturation 94% on light nasal cannula. General: This is a chronically ill- appearing elderly female lying in bed in no acute distress. Heart: S1, S2 normal. Tachycardic. Lungs: Clear to auscultation bilaterally. Abdomen: Positive bowel sounds. Soft, nontender, nondistended. Extremities: No edema. No cyanosis. Neurologic: The patient is alert and oriented x3. LABORATORIES: White blood cell count 11, hemoglobin 9.3, hematocrit 30, platelets 421,000. Sodium 129, potassium 4.1, chloride 91, CO2 24, BUN 12, creatinine 0.7, glucose 167. ASSESSMENT AND PLAN: 1. Status post open reduction and intramedullary nailing of a left femur fracture. Management as per the orthopedic surgeon. 2. Hyponatremia. We will monitor the sodium closely. 3. Diabetes mellitus type 2. We will monitor the patient's blood sugars closely. Continue with sliding scale insulin. 4. Hypertension. Controlled. 5. Deep vein thrombosis prophylaxis. Continue with sequential compression devices. cc: Silvana John MD MTDD
[2019-01-09] MEDS: COLACE PO SCH (20:58)
[2019-01-09] MEDS: OXY IR PO PRN (20:58)
[2019-01-09] MEDS: XOPENEX NEB INH SCH (21:11)
[2019-01-09] MEDS ORDERED: NS 1,000 ML IV ONE (23:53)
[2019-01-10 00:15] LABS: HEMATOCRIT 26.9 % (37.0-47.0); HEMOGLOBIN 8.2 g/dL (12.0-16.0)
[2019-01-10] MEDS: HUMULIN R SUBQ SCH ×6 (00:17→22:07)
[2019-01-10] MEDS: ZOFRAN IV PRN (00:20)
[2019-01-10] MEDS: TYLENOL PO SCH ×4 (01:48→17:42)
--- NOTE | 2019-01-10 06:23 | Diag Imaging Result Doc PS360 ---
EXAM: CHEST-PORTABLE HISTORY: pulmonary edema TECHNIQUE: Portable chest single view COMPARISON: 01/08/2019 FINDINGS: The lungs are well expanded. The heart is not enlarged. Decreased pulmonary edema and left basilar infiltrates/atelectasis. There are no infiltrates. No effusion identified. IMPRESSION: Interval improvement Electronically signed by Jose Martin Cannon 01/10/2019 6:20 AM
[2019-01-10] MEDS: PRILOSEC PO SCH (06:24)
[2019-01-10 06:36] LABS: HEMATOCRIT 23.5 % (37.0-47.0); HEMOGLOBIN 7.1 g/dL (12.0-16.0); MCH 25.3 PG (27-31); MCHC 30.2 g/dL (33-37); MCV 83.6 FL (81-99); MPV 10.7 FL (7.4-10.4); RBC 2.81 XMIL (4.2-5.4); RDW 14.6 % (11.5-14.5); WBC 18.82 X1000 (4.8-10.8)
[2019-01-10 07:03] LABS: CALCIUM 7.5 mg/dL (8.8-10.2); CREATININE 1.8 mg/dL (0.5-0.9); POTASSIUM 4.4 mmol/L (3.5-5.1)
[2019-01-10] MEDS ORDERED: NS 1,000 ML IV SCH (07:30)
[2019-01-10 08:02] LABS: ALB/GLOB RATIO 1.1; ALBUMIN 3.3 g/dL (3.5-5.0); DIRECT BILIRUBIN 0.1 mg/dL (0.00-0.20); TOTAL BILIRUBIN 0.4 mg/dL (0.20-1.00); TOTAL PROTEIN 6.2 g/dL (6.3-8.3)
[2019-01-10 08:28] LABS: CK INDEX 2.9 (0.0-2.5); CK-MB 10.89 ng/mL (0.0-5.0)
[2019-01-10] MEDS ORDERED: FERROUS SULFATE PO SCH (09:00)
[2019-01-10 09:03] LABS: ALLEN TEST YES; BE -2.6 mmoll (-3.0-3.0); BLOOD TYPE ARTERIAL; HCO3-(ACT) 22.9 mmoll (20.0-26.0); METHB 0.2 % (0.0-1.5); O2(CT) 12.4 mL/dL (15.0-23.0); O2HB 97.6 % (95.0-99.0); PCO2(98.6) 33 mmHg (35-45); PO2(98.6) 96 mmHg (60-100); SAMPLE BLOOD; SAO2 99.9 % (95.0-100.0); THB 8.9 g/dL (11.5-17.4); pH(98.6) 7.42 (7.35-7.45)
[2019-01-10 09:04] LABS: MODALITY CANNULA
[2019-01-10] MEDS: MAXIPIME 1 GM in NS 50 ML IV SCH ×2 (09:42→20:10)
[2019-01-10] MEDS: MIRALAX PO SCH (09:43)
[2019-01-10] MEDS: ZYVOX 600 MG/D5W 600 MG/300 ML IVPB IV SCH ×2 (09:43→20:10)
[2019-01-10 10:06] LABS: FERRITIN 52 ng/mL (13-150)
[2019-01-10 10:18] LABS: IRON SATURATION 5 %; TIBC 308 ug/dL; TOTAL IRON 15 ug/dL (49-151); UNBOUND IRON 293 ug/dL (112-346)
[2019-01-10] MEDS ORDERED: FOLIC ACID PO ONE (10:40)
[2019-01-10 12:21] LABS: URINE SOURCE CATH
[2019-01-10 12:30] LABS: BILIRUBIN URINE NEGATIVE (NEGATIVE); BLOOD URINE MODERATE (NEGATIVE); COLOR ORANGE; GLUCOSE URINE NEGATIVE (NEGATIVE); KETONE URINE TRACE mg/dL (NEGATIVE); LEUKOCYTES URINE LARGE (NEGATIVE); NITRITE URINE NEGATIVE (NEGATIVE); PH URINE 5.5; PROTEIN URINE 100 mg/dL (NEGATIVE); SP GRAVITY URINE 1.018; TURBIDITY URINE TURBID (CLEAR); UROBILINOGEN URINE NORMAL (NORMAL)
[2019-01-10 12:32] LABS: UR EPITHELIAL CELLS >10 /HPF (<10); URINE BACTERIA 1+ /HPF; URINE RBC 20-40 /HPF (<10)
[2019-01-10 12:44] LABS: URINE CRYSTALS NONE SEEN; URINE YEAST NONE SEEN
[2019-01-10 12:49] LABS: UR CREAT RANDOM 146.7 mg/dL (11-20); UR PROT RANDOM 141.8 mg/dL
[2019-01-10] MEDS ORDERED: NS 0 ML ONE (12:52)
[2019-01-10 13:07] LABS: URINE WBC TNTC /HPF (<10)
[2019-01-10] MEDS: VITAMIN B-12 SL SCH (14:41)
[2019-01-10] MEDS: XOPENEX NEB INH SCH ×3 (15:13→21:03)
[2019-01-10] MEDS: OXY IR PO PRN (15:21)
--- NOTE | 2019-01-10 16:44 | Diag Imaging Result Doc PS360 ---
CT THORAX W/O CONTRAST - 01/10/2019 INDICATION: pulmonary edema/pneumonia COMPARISON: Prior chest x-rays FINDINGS: There is cardiomegaly. There is mild interstitial pulmonary edema bilaterally. No dense consolidations. Upper abdominal images are normal. There are moderate degenerative changes of the spine. No acute or suspicious bony lesion. IMPRESSION: Cardiomegaly. Mild interstitial pulmonary edema. This exam was performed using automated exposure control, adjustment of mA or kV according to patient size, and/or use of iterative reconstruction technique Electronically signed by Shakeel Castaneda 01/10/2019 4:42 PM
--- NOTE | 2019-01-10 17:17 | ECHO REPORT ---
ORDER DATE: 01/10/2019 INDICATION: An 88-year-old female, a patient of Dr. John (hospitalist), with hypertension, diabetes, TIA. The study was difficult. M-MODE MEASUREMENTS: Left ventricle end diastole: 4.4. Left ventricle end systole: 2.8. Posterior wall: Probably 1.0. Interventricular septum: Probably 1.0. Left atrium: 3.4. Aortic diameter: 3.1. SUMMARY OF 2-DIMENSIONAL IMAGIN. The study is very limited. Global left ventricular systolic function appears to be hyperdynamic. Ejection fraction is probably on the order of 70% to 75%. There is no wall motion abnormality noted. 2. The aortic valve shows a very mild degree of regurgitation. 3. The mitral valve is suboptimally visualized. Color flow mapping unremarkable. 4. Pulsed wave Doppler of mitral inflow is normal. 5. Tissue Doppler of septal and lateral mitral annulus averages 9 cm. There is no diastolic dysfunction. 6. The pulmonic valve is unremarkable. 7. The tricuspid valve shows a mild degree of regurgitation. Pulmonary pressure estimated at 43 mmHg. 8. There is a trace pericardial effusion, probably physiologic. 9. The atria appear to be mildly enlarged. Clinical correlation recommended. cc: MD Silvana Pennington MD
--- NOTE | 2019-01-10 18:35 | ORTHOPAEDICS PROGRESS NOTE ---
DATE: 01/10/2019 SUBJECTIVE: No acute events overnight. Patient is doing well. She reports significant pain in the hip when she is up mobilizing; however, otherwise is not having much pain. She is tolerating a diet. She has no other complaints. OBJECTIVE: Hematocrit 24. Vital signs stable. Extremities: Examination of left lower extremity shows dressing to be clean, dry, intact. The patient's thigh is soft and compressible. She is nontender to palpation over proximal thigh and surgical site. The calf is soft and compressible. Motor is intact, EHL, tibialis anterior, gastrocsoleus complex. Sensation intact to light touch L3-S1. Dorsalis pedis pulse palpable. IMAGING: Postop AP and lateral of the left hip were obtained in PACU showing good reduction in alignment of the fracture with hardware in good position. ASSESSMENT: 88-year-old female status post open reduction, intramedullary nailing, left hip fracture, postop day 1. PLAN: 1. Patient can be weightbearing as tolerated, left lower extremity. Physical therapy is to work with her on gait training and mobilization using assistive device. 2. Lovenox deep venous thrombosis prophylaxis. Okay to restart aspirin and Plavix from orthopedic standpoint. 3. Keep dressings clean, dry, intact x3 days. Following this, she can remove the dressing and wash around her incisions with soap and water. No soaking in a bathtub or submerging in a pool. 4. Appreciate hospitalist recommendations in medical management. 5. Disposition, per primary team. The patient is planning on being discharged to long-term facility when a bed is available. She can follow up with me in clinic in 2 weeks for wound check and follow-up x-rays.
[2019-01-10 18:37] LABS: CALCIUM 7.4 mg/dL (8.8-10.2); CREATININE 1.7 mg/dL (0.5-0.9); POTASSIUM 4.5 mmol/L (3.5-5.1)
[2019-01-10] MEDS ORDERED: LASIX IV ONE (18:46)
--- NOTE | 2019-01-10 19:43 | PROGRESS NOTE ---
DATE: 01/10/2019 SUBJECTIVE: The patient states that she had a rough night. She had an anxiety attack and states that her shortness of breath has not improved. OBJECTIVE: Vital Signs: Temperature 97.9 degrees, blood pressure 168/102, heart rate 95, respirations 16, O2 saturations 100% on 3 L nasal cannula. General: This is a chronically ill- appearing elderly female, resting in bed in no acute distress. Heart: S1, S2 normal. Tachycardic. Lungs: Coarse breath sounds bilaterally. Abdomen: Positive bowel sounds. Soft, nontender, nondistended. Extremities: No edema, no cyanosis. Neurologic: The patient is alert and oriented x4. LABORATORY DATA: White blood cell count 18, hemoglobin 7.1, hematocrit 23, platelets 385,000. Sodium 128, potassium 4.5, chloride 93, CO2 is 20, BUN 23, creatinine 1.7, glucose 276. Urinalysis shows large leukocytes, positive for bacteria. ASSESSMENT AND PLAN: 1. Acute hypoxemic respiratory failure. The patient has pulmonary edema on the CT scan. We will start the patient on diuretic therapy and continue with supplemental oxygen. 2. Acute pulmonary edema. An echocardiogram has been ordered. The patient will be given a trial of diuretic therapy. 3. Acute kidney injury. We will check urine studies. 4. Severe iron deficiency anemia. The patient will receive 1 unit of packed red blood cells today. We will also start iron supplementation. 5. Folate deficiency. We will start the patient on folic acid. 6. Vitamin B12 deficiency. We will start the patient on vitamin B12. 7. Urinary tract infection. Blood and urine cultures have been obtained. The patient has been started on antibiotic therapy. 8. Uncontrolled diabetes mellitus. We will start the patient on sliding scale insulin. 9. Status post open reduction and intramedullary nailing of the left femur fracture. Management as per the orthopedic surgeon. 10. Hyponatremia. We will monitor the patient's sodium closely. 11. Constipation. Continue with scheduled laxative therapy. 12. Deep venous thrombosis prophylaxis. Continue with sequential compression devices. We will defer to Lovenox or Xarelto as per the orthopedic surgeon. cc: Silvana John MD MTDD
[2019-01-10] MEDS: TOPROL XL PO SCH (20:09)
[2019-01-10] MEDS: ICAR-C PO SCH (20:09)
[2019-01-10] MEDS: COLACE PO SCH (20:10)
[2019-01-10] MEDS ORDERED: SYNTHROID PO SCH (21:00)
[2019-01-10] MEDS: NS NEB INH SCH (21:03)
[2019-01-10] MEDS: LANTUS INSULIN SUBQ SCH (22:08)
[2019-01-11] MEDS: TYLENOL PO SCH ×5 (02:26→18:35)
[2019-01-11 05:16] LABS: HEMATOCRIT 25.8 % (37.0-47.0); MCH 25.2 PG (27-31); MCV 81.4 FL (81-99); MPV 10.6 FL (7.4-10.4); RBC 3.17 XMIL (4.2-5.4); RDW 14.5 % (11.5-14.5); WBC 10.92 X1000 (4.8-10.8)
[2019-01-11 05:52] LABS: CALCIUM 7.4 mg/dL (8.8-10.2); CREATININE 1.2 mg/dL (0.5-0.9); POTASSIUM 3.7 mmol/L (3.5-5.1)
[2019-01-11] MEDS: PRILOSEC PO SCH (06:17)
[2019-01-11] MEDS: SYNTHROID PO SCH (06:17)
[2019-01-11] MEDS: HUMULIN R SUBQ SCH ×4 (06:25→20:21)
[2019-01-11] MEDS ORDERED: CALCIUM GLUCONATE 1 GM in NS 50 ML IV ONE (07:06)
--- NOTE | 2019-01-11 07:49 | Diag Imaging Result Doc PS360 ---
EXAM: CHEST-PORTABLE INDICATION: pulmonary edema TECHNIQUE: One view COMPARISON: 01/10/2019 FINDINGS: Mild chronic appearing interstitial thickening is stable. No new consolidation is identified. Cardiac silhouette is stable. IMPRESSION: Stable chest. Electronically signed by James Pacheco 01/11/2019 7:47 AM
[2019-01-11] MEDS ORDERED: LASIX PO ONE (07:51)
[2019-01-11] MEDS: XOPENEX NEB INH SCH ×3 (08:13→22:01)
--- NOTE | 2019-01-11 08:38 | ORTHOPAEDICS PROGRESS NOTE ---
DATE: 01/11/2019 SUBJECTIVE: The patient is a pleasant 88-year-old female, who is 2 days status post intramedullary nailing of the left femur for a left peritrochanteric femur fracture per Dr. Boss. She is currently resting comfortably. PHYSICAL EXAMINATION: Patient's left lower extremity dressing is intact. Her calf is soft. She has active dorsiflexion, plantar flexion. She is grossly neurovascularly intact. LABS: Her hemoglobin is 8.0, hematocrit is 25.8. IMPRESSION: Postoperative day #2 status post intramedullary nailing of the left femur. PLAN: At this point, patient will continue progressive physical therapy. Will allow weight bearing as tolerated left lower extremity. Anesthesiology Teacher have been consulted for discharge planning for inpatient rehabilitation. We will change her dressing today. cc: Tae Wong MD MTDD
[2019-01-11] MEDS: VITAMIN B-12 SL SCH (08:45)
[2019-01-11] MEDS: TOPROL XL PO SCH ×2 (08:45→20:08)
[2019-01-11] MEDS: ZYVOX 600 MG/D5W 600 MG/300 ML IVPB IV SCH (08:45)
[2019-01-11] MEDS: MAXIPIME 1 GM in NS 50 ML IV SCH ×2 (08:45→20:07)
[2019-01-11] MEDS: MIRALAX PO SCH (08:45)
[2019-01-11] MEDS: FOLIC ACID PO SCH (08:46)
[2019-01-11] MEDS: ICAR-C PO SCH ×2 (08:46→20:08)
[2019-01-11] MEDS: LANTUS INSULIN SUBQ SCH ×2 (08:54→20:21)
[2019-01-11] MEDS ORDERED: CARDIZEM IV ONE (17:44)
[2019-01-11] MEDS: CARDIZEM 125 MG/D5W 125 MG/125 ML IVPB IV SCH (17:53)
--- NOTE | 2019-01-11 18:08 | PROGRESS NOTE ---
DATE: 01/11/2019 SUBJECTIVE: The patient is sitting up in bed. She states that she feels a lot better today than she did yesterday. OBJECTIVE: Vital Signs: Temperature 98.6, blood pressure 156/74, heart rate 83, respirations 18, O2 saturation 99% on 2 L nasal cannula. General: This is a flucxntunah-oyw-fovzewyin elderly female sitting up in bed in no acute distress. Heart: S1, S2 normal. Regular rate and rhythm. Lungs: Equal air entry bilaterally. No wheezing. No rales. Abdomen: Positive bowel sounds. Soft, nontender, nondistended. Extremities: Trace pedal edema. Neurologic: The patient is alert and oriented x4. LABS: White blood cell count 10, hemoglobin 8, hematocrit 25, platelets 321. Sodium 132, potassium 3.7, chloride 94, CO2 22, BUN 20, creatinine 1.2, glucose 160. Chest x-ray showed a stable chest. ASSESSMENT AND PLAN: 1. Acute hypoxemic respiratory failure. Slowly improving. Continue diuretic therapy. 2. Acute pulmonary edema. Improved. Continue on Lasix. 3. Acute kidney injury. Improved. 4. Deficiency anemia. Stable. Continue with iron supplementation. 5. Folate deficiency. Continue on folic acid. 6. Vitamin B12 deficiency. Continue on vitamin B12 replacement. 7. Urinary tract infection. The urine culture is growing gram-negative rods. Continue on antibiotic therapy. 8. Diabetes mellitus. Continue on sliding-scale insulin. 9. Status post open reduction and intramedullary nailing of left femur fracture. Management as per the orthopaedic surgeon. 10. Hyponatremia. Improved. 11. Constipation. Continue with laxative therapy. 12. Hypothyroidism. Continue on Synthroid. 13. Hypocalcemia. Will replace the patient's calcium. 14. Deep venous thrombosis prophylaxis. Will start the patient on Lovenox. cc: Silvana John MD MTDD
[2019-01-11] MEDS ORDERED: LOVENOX SUBQ SCH (20:00)
[2019-01-11] MEDS: COLACE PO SCH (20:08)
[2019-01-12] MEDS: CARDIZEM 125 MG/D5W 125 MG/125 ML IVPB IV SCH (02:45)
[2019-01-12] MEDS: TYLENOL PO SCH ×4 (02:46→17:59)
[2019-01-12] MEDS: PRILOSEC PO SCH ×2 (05:32→06:38)
[2019-01-12] MEDS: SYNTHROID PO SCH ×2 (05:32→06:38)
[2019-01-12 05:42] LABS: HEMATOCRIT 27.8 % (37.0-47.0); HEMOGLOBIN 8.4 g/dL (12.0-16.0); MCH 25.2 PG (27-31); MCHC 30.2 g/dL (33-37); MCV 83.5 FL (81-99); MPV 10.6 FL (7.4-10.4); RBC 3.33 XMIL (4.2-5.4); RDW 14.9 % (11.5-14.5); WBC 11.01 X1000 (4.8-10.8)
[2019-01-12 06:09] LABS: AGAP 17; BUN 17 mg/dL (8-22); CALCIUM 7.6 mg/dL (8.8-10.2); CHLORIDE 93 mmol/L (98-107); COSMO 273; CREATININE 0.8 mg/dL (0.5-0.9); ESTIMATED GFR > 60; GLUCOSE 153 mg/dL (70-104); POTASSIUM 3.4 mmol/L (3.5-5.1); SODIUM 134 mmol/L (136-145); TCO2 24 mmol/L (25-35)
[2019-01-12] MEDS: HUMULIN R SUBQ SCH ×4 (06:38→21:38)
[2019-01-12 07:02] LABS: MAGNESIUM 1.3 mg/dL (1.5-2.7)
[2019-01-12] MEDS ORDERED: MAGNESIUM SULFATE 4 GM/S.W.I. 4 GM/100 ML IVPB IV ONE (07:30)
[2019-01-12] MEDS: LANTUS INSULIN SUBQ SCH ×2 (08:29→21:39)
[2019-01-12] MEDS: MIRALAX PO SCH (08:29)
[2019-01-12] MEDS: MAXIPIME 1 GM in NS 50 ML IV SCH ×2 (08:29→21:59)
[2019-01-12] MEDS: VITAMIN B-12 SL SCH (08:30)
[2019-01-12] MEDS: TOPROL XL PO SCH ×2 (08:30→21:36)
[2019-01-12] MEDS: ICAR-C PO SCH ×2 (08:30→21:36)
[2019-01-12] MEDS: FOLIC ACID PO SCH (08:30)
[2019-01-12] MEDS: NEUTRA-PHOS PO SCH ×4 (08:30→21:38)
[2019-01-12] MEDS ORDERED: KLOR-CON PO ONE (09:00)
[2019-01-12] MEDS: XOPENEX NEB INH SCH ×3 (09:01→22:02)
--- NOTE | 2019-01-12 09:01 | EKG Report ---
Test Performed on : 01/11/2019 5:40:07 PM Test Reason : EKG Changes Blood Pressure : / mmHG Vent. Rate : 135 BPM Atrial Rate : 120 BPM P-R Int : 000 ms QRS Dur : 090 ms QT Int : 310 ms P-R-T Axes : 000 012 199 degrees QTc Int : 465 ms Atrial fibrillation. with rapid ventricular response. Marked ST abnormality, possible inferior subendocardial injury Marked ST abnormality, possible anterior subendocardial injury Abnormal ECG When compared with ECG of 22-NOV-2016 21:54, Atrial fibrillation. has replaced Sinus rhythm. ST now depressed in Inferior leads ST now depressed in Lateral leads T wave inversion now evident in Inferior leads T wave inversion now evident in Anterolateral leads Confirmed by Megan BALDERAS, Yonas Simeon ([id number]) on 01/12/2019 9:42:30 PM
--- NOTE | 2019-01-12 09:58 | ORTHOPAEDICS PROGRESS NOTE ---
DATE: 01/12/2019 SUBJECTIVE: Patient was 88-year-old female who is 3 days status post intramedullary nailing of the left femur for left peritrochanteric femur fracture per Dr. Boss. She is resting comfortably this morning. She is awake alert. PHYSICAL EXAMINATION: The left lower extremity dressing is intact. Calf is soft. Active dorsiflexion, plantar flexion. Her hemoglobin is 8.4 hematocrit is 27.8. IMPRESSION: Postoperative day #3 status intramedullary nailing of the left femur. PLAN: At this point, patient continue mobilization with to weight bearing as tolerated. She is stable from an orthopedic standpoint and anticipate discharge for inpatient rehabilitation tomorrow. cc: Tae Wong MD MTDD
[2019-01-12] MEDS ORDERED: CARDIZEM PO SCH (13:12)
[2019-01-12] MEDS ORDERED: LASIX PO ONE (13:17)
[2019-01-12] MEDS: CARDIZEM PO SCH ×2 (13:41→21:37)
--- NOTE | 2019-01-12 13:43 | CARDIOLOGY CONSULTATION ---
DATE: 01/12/2019 REASON FOR CONSULTATION: Cardiology was consulted for new onset atrial fibrillation. Patient was started on a Cardizem drip. HISTORY OF PRESENT ILLNESS: Patient today feels better. Does not complain of any palpitations. There is no dizziness. Denies chest pain. The patient has a history of hypertension, hyperlipidemia, diabetes type 2, TIA. She fell and came to the emergency room, while she was watering her strong. She developed pain in her left hip. X-ray revealed a left hip fracture. From a cardiac standpoint, no previous cardiac history. She has not had any coronary artery disease. There is no history of having had chest pains. There is no history of palpitations. During her recent hospitalization, she had an episode of shortness of breath where was a chest x- ray revealed heart failure and she was given Lasix symptomatically. She has improved. She also states that while this happened, she was not complaining of any significant shortness of breath. She underwent surgery on 01/09/2019 with open reduction and intramedullary nailing of the left peritrochanteric femur fracture. PAST MEDICAL HISTORY: 1. Hypertension. 2. Hyperlipidemia. 3. Diabetes. 4. TIA. 5. Hypothyroidism. 6. 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 7. Cataract surgery. 8. Ankle surgery. 9. Right shoulder surgery. ALLERGIES: She is allergic to sulfonamides. HOME MEDICATIONS: Include Lotrel 5/20, spironolactone 25, Plavix 75, levothyroxine 75, metformin 500 b.i.d., metoprolol 75 q.a.m., omeprazole 40, pravastatin 40. REVIEW OF SYSTEMS: A 14-point review of systems was done. GI System: There is no history of nausea, vomiting, or diarrhea. There is no history of hematemesis or melena. Central Nervous System: No focal weakness to suggest a CVA or TIA. Genitourinary System: There is no dysuria or hematuria. PHYSICAL EXAMINATION: Vital Signs: Blood pressure 111/68. First and second heart sounds were heard. There was no S3 gallop. Respiratory System: Normal air entry. There is no crepitations or rhonchi. Abdomen: Soft, nontender. Central Nervous System: Alert and oriented, was moving all 4 extremities. ASSESSMENT: Ms. Rama Teixeira is an 88-year-old, lady who has sustained a hip fracture and underwent surgery. Has history of transient ischemic attack, hypertension, diabetes. No previous cardiac history. She went into atrial fibrillation with rapid ventricular rate. Currently, she is on a Cardizem drip. She denies any chest pain. Her electrocardiogram revealed atrial fibrillation with nonspecific ST-T changes in the anterior leads with ST depression. This could be secondary to the atrial fibrillation. I do not have an admission electrocardiogram at this time to compare with to see if she had these ST depressions before. However, this atrial fibrillation is new. PLAN: 1. We will discontinue the Cardizem drip. Start her on Cardizem p.o. 60 mg 3 times a day. 2. We will check 2 sets of cardiac enzymes to make sure there is no ischemia or infarction. 3. She had an episode of heart failure, was given Lasix. Currently euvolemic. I have not made any changes. 4. The last echocardiogram on 01/10/2019 revealed an ejection fraction of 70 to 75 percent. This was a limited study. There are no significant valvular abnormalities noted. 5. For hypertension, she was on Lotrel. Currently, blood pressure is on the lower side. We will see how she does with the Cardizem. She is also on metoprolol 50 b.i.d. We will adjust dosages if required. 6. I had a detailed discussion pertaining to anticoagulation therapy. She has had a history of stroke in the past and I will put her on Eliquis 2.5 mg to be taken twice daily, adjusted for age and weight. 7. Diabetes. Continue with insulin. 8. Recent fracture, status post surgery for same. Patient complains of soreness at the site of surgery. 9. The laboratory examination revealed hemoglobin 8.4, hematocrit 27.8, platelet count of 388,000. Would recommend keeping a watch on the CBC given the fact that we are starting her on Eliquis. Sodium 132, potassium 3.5, BUN 20, creatinine 1.2, GFR 42. 10. Her BUN and creatinine have improved. 11. She had an episode of diastolic heart failure. Currently euvolemic. At that time, she was apparently in sinus rhythm, looking at her telemetry strips. Her magnesium was 1.3, which has been repleted. Thank you for the consult. We will follow hospital course. cc: David Metzger MD
--- NOTE | 2019-01-12 13:58 | PROGRESS NOTE ---
DATE: 01/12/2019 SUBJECTIVE: The patient is sitting up, eating breakfast. She states that she feels fine. She denies having any chest pain or palpitations. She is currently on a Cardizem drip. OBJECTIVE: Vital Signs: Temperature 97.8 degrees, blood pressure 98/70, heart rate 75, respirations 18, O2 saturation is 100% on 2 L nasal cannula. Intake 1.3 L, output 3.3 L. General: This is a chronically ill-appearing, elderly female, lying in bed in no acute distress. Heart: S1, S2 normal. Irregularly irregular rhythm. Lungs: Diminished breath sounds at the bases. No wheezing. No rales. Abdomen: Positive bowel sounds. Soft, nontender, nondistended. Extremities: There is 1+ edema bilaterally. Neurologic: The patient is alert and oriented x4. LABORATORY DATA: Hemoglobin 8.4, hematocrit 27, white blood cell count 11, platelets 388,000. Sodium 134, potassium 3.4, chloride 93, CO2 of 24, BUN 17, creatinine 0.8, glucose 153, calcium 7.6. Phosphorus 2, magnesium 1.3. ASSESSMENT AND PLAN: 1. Acute hypoxemic respiratory failure. Slowly improving. Will continue to try and wean the patient off of supplemental oxygen. 2. Acute pulmonary edema. Slowly improving. Continue with diuretic therapy. 3. Folate deficiency. Continue on folic acid replacement. 4. Vitamin B12 deficiency. Continue with vitamin B12 replacement. 5. Urinary tract infection secondary to Escherichia coli. Continue on cefepime. 6. Atrial fibrillation. The patient is currently on a Cardizem drip. She is also on Toprol-XL. Will await further recommendations from the corner trimmer operator. 7. Hypomagnesemia. Will replace the patient's magnesium. 8. Hypokalemia. Will replace the patient's potassium. 9. Hypothyroidism. Continue on Synthroid. 10. Constipation. Continue with scheduled laxative therapy. 11. Status post open reduction and intramedullary nailing of the left femur fracture. Management as per the orthopedic surgeon. 12. Diabetes mellitus type 2. Continue on sliding scale insulin. 13. Deep vein thrombosis prophylaxis. Continue on Lovenox. 14. Continue with physical therapy. The patient will need inpatient rehab placement once she is medically stable. We will consult with Dual Rate Supervisor for assistance with placement. cc: Silvana John MD [facility]
[2019-01-12 15:07] LABS: CK-MB 3.73 ng/mL (0.0-5.0)
[2019-01-12] MEDS: ELIQUIS PO SCH (21:37)
[2019-01-12] MEDS: COLACE PO SCH (21:37)
[2019-01-12 21:42] LABS: CK INDEX 0.9 (0.0-2.5); CK-MB 2.99 ng/mL (0.0-5.0)
[2019-01-13] MEDS: TYLENOL PO SCH ×3 (02:51→18:31)
[2019-01-13] MEDS: HUMULIN R SUBQ SCH ×4 (06:17→21:16)
[2019-01-13] MEDS: SYNTHROID PO SCH (06:17)
[2019-01-13] MEDS: PRILOSEC PO SCH (06:17)
--- NOTE | 2019-01-13 06:38 | Diag Imaging Result Doc PS360 ---
EXAM: CHEST-PORTABLE HISTORY: pulmonary edema TECHNIQUE: Chest single view COMPARISON: 01/11/2019 FINDINGS: The lungs are well expanded. The heart is not enlarged. The vessels are not distended. There are no infiltrates. No effusion identified. Scattered granuloma. IMPRESSION: Negative exam. Electronically signed by Jose Martin Cannon 01/13/2019 6:36 AM
[2019-01-13 07:08] LABS: AGAP 9; BUN 18 mg/dL (8-22); CALCIUM 7.8 mg/dL (8.8-10.2); CHLORIDE 95 mmol/L (98-107); COSMO 265; CREATININE 0.7 mg/dL (0.5-0.9); ESTIMATED GFR > 60; GLUCOSE 146 mg/dL (70-104); POTASSIUM 4.3 mmol/L (3.5-5.1); SODIUM 130 mmol/L (136-145); TCO2 26 mmol/L (25-35)
[2019-01-13 07:09] LABS: BASO# 0.01 X1000 (0.0-0.2); BASO% 0.1 % (0.0-0.8); EOS# 0.08 X1000 (0.0-0.7); EOS% 0.9 % (0.0-10.0); HEMATOCRIT 26.4 % (37.0-47.0); HEMOGLOBIN 7.9 g/dL (12.0-16.0); IMM GRAN# 0.03 X1000 (0.0-0.04); IMM GRAN% 0.3 % (0.0-0.5); LYMPH# 1.75 X1000 (1.2-3.4); LYMPH% 18.7 % (20.5-51.1); MCH 25.2 PG (27-31); MCHC 29.9 g/dL (33-37); MCV 84.3 FL (81-99); MONO% 12.8 % (1.7-9.3); MPV 10.3 FL (7.4-10.4); NEUT# 6.29 X1000 (1.4-6.5); NEUT% 67.2 % (42.2-75.2); PLT 438 X1000 (130-400); RBC 3.13 XMIL (4.2-5.4); RDW 15.4 % (11.5-14.5); WBC 9.36 X1000 (4.8-10.8)
[2019-01-13 07:15] LABS: MAGNESIUM 2.3 mg/dL (1.5-2.7); PHOSPHORUS 2.7 mg/dL (2.7-4.5)
[2019-01-13] MEDS: ROCEPHIN 1 GM in NS 50 ML IV SCH (08:37)
[2019-01-13] MEDS: LANTUS INSULIN SUBQ SCH ×2 (08:37→21:17)
--- NOTE | 2019-01-13 08:37 | ORTHOPAEDICS PROGRESS NOTE ---
DATE: 01/13/2019 SUBJECTIVE DATA: Ms. Teixeira is postop day 4 from an intramedullary nailing of the left femur. She is doing very well. She states she is not having any hip pain. She is answering questions appropriately. OBJECTIVE DATA: Left lower extremity exam, the incision is clean, dry, and intact. She is able to dorsi and plantar flex the foot. She is currently in atrial fibrillation. Her hemoglobin and hematocrit this morning are 7.9 and 26.4. IMPRESSION: Postoperative day 4 status post intramedullary nailing of the left femur. PLAN: I really want Ms. Teixeira working with physical therapy. She states she has not been up much. She can be full weightbearing as tolerated to this left side. From an orthopedic standpoint, she is ready for discharge. It sounds like she is awaiting an inpatient rehabilitation bed. She will follow up with Dr. Boss in 12-14 days. They can get her jesus out at the rehab in 14 days. If there is any question or concern, they are welcome to call the office. Dictated by ANAID Kendrick for Aguila Boss MD cc: ANAID Kendrick
[2019-01-13] MEDS: ICAR-C PO SCH ×2 (08:38→21:15)
[2019-01-13] MEDS: FOLIC ACID PO SCH (08:38)
[2019-01-13] MEDS: NEUTRA-PHOS PO SCH ×4 (08:38→21:15)
[2019-01-13] MEDS: VITAMIN B-12 SL SCH (08:38)
[2019-01-13] MEDS: TOPROL XL PO SCH ×2 (08:38→21:15)
[2019-01-13] MEDS: CARDIZEM PO SCH ×3 (08:38→21:15)
[2019-01-13] MEDS: ELIQUIS PO SCH ×2 (08:38→21:15)
[2019-01-13] MEDS: MIRALAX PO SCH (08:51)
--- NOTE | 2019-01-13 09:30 | PROGRESS NOTE ---
DATE: 01/13/2019 SUBJECTIVE: This patient is sitting up, at the moment of my physical exam, she was eating breakfast, no acute events overnight. She is feeling better. OBJECTIVE: Vital Signs: Temperature 99 degrees, pulse 85, respiratory rate 14, blood pressure 124/57, oxygen saturation 98 on 2 L of nasal cannula. HEENT: Head normocephalic, no trauma, PERRLA. Neck: Supple. No JVD. No masses. Central trachea. Chest: Decreased breath sounds at the bases with some crepitus. Cardiovascular: Irregularly irregular rate and rhythm. Abdomen: Soft, nontender, nondistended. No hepatosplenomegaly. Extremities: Trace lower extremity edema bilaterally. Neurological: This patient is alert, she is oriented. No focal deficits. Her wound looks fine. LABORATORY: WBC 9.3, hemoglobin 7.9, hematocrit 26.4, platelet 438,000, sodium 130, potassium 4.3, chloride 95, bicarbonate 26, BUN 18, creatinine 0.7, glucose 146, calcium 7.8, magnesium 2.3. ASSESSMENT AND PLAN: 1. Acute hypoxemic respiratory failure, this is getting better. Continue with oxygen supplementation for now. We will try to wean this patient off oxygen. 2. Acute pulmonary edema, improving. Chest x-ray today did not show any infiltrates, no effusion identified, so we will continue with the same management. 3. Folate deficiency continue with folic acid replacement. 4. B12 deficiency. Continue with B12 replacement. 5. Urinary tract infection secondary to Escherichia coli. I have stopped the cefepime and I put her on ceftriaxone. 6. Atrial fibrillation with RVR, Cardiology on board. She has been placed on diltiazem and anticoagulation. 7. Hypomagnesemia resolved. 8. Hypokalemia resolved. 9. Hypothyroidism. Continue with Synthroid. 10. Constipation continue with stool softeners. 11. Status post open reduction and intramedullary nailing of the left femur of the left hip fracture, aware. Orthopedic surgery following this patient closely. Likely this patient will need to go to rehab. 12. Type 2 diabetes continue with sliding scale insulin. 13. Deep vein thrombosis prophylaxis with Lovenox. 14. Continue physical therapy and occupational therapy. Once cardiology department states that this patient can be discharged to a rehab center, we will do it. cc: Venkatesh Ortiz MD
[2019-01-13] MEDS: XOPENEX NEB INH SCH ×3 (09:32→21:30)
[2019-01-13] MEDS: NS NEB INH SCH ×2 (09:34→15:18)
[2019-01-13 11:48] LABS: CK INDEX 0.8 (0.0-2.5); CK-MB 2.22 ng/mL (0.0-5.0)
[2019-01-13] MEDS: COLACE PO SCH (21:15)
[2019-01-13] MEDS: OXY IR PO PRN (21:21)
[2019-01-14] MEDS: TYLENOL PO SCH ×4 (02:46→21:26)
[2019-01-14 06:37] LABS: BASO# 0.02 X1000 (0.0-0.2); BASO% 0.2 % (0.0-0.8); EOS# 0.32 X1000 (0.0-0.7); EOS% 3.6 % (0.0-10.0); HEMATOCRIT 26.7 % (37.0-47.0); HEMOGLOBIN 7.9 g/dL (12.0-16.0); IMM GRAN# 0.07 X1000 (0.0-0.04); IMM GRAN% 0.8 % (0.0-0.5); LYMPH# 1.58 X1000 (1.2-3.4); MCH 25.5 PG (27-31); MCHC 29.6 g/dL (33-37); MCV 86.1 FL (81-99); MONO# 1.14 X1000 (0.11-0.59); MPV 9.8 FL (7.4-10.4); NEUT# 5.66 X1000 (1.4-6.5); NEUT% 64.4 % (42.2-75.2); PLT 464 X1000 (130-400); RDW 15.8 % (11.5-14.5); WBC 8.79 X1000 (4.8-10.8)
[2019-01-14] MEDS: HUMULIN R SUBQ SCH ×4 (06:43→21:23)
[2019-01-14] MEDS: SYNTHROID PO SCH (06:44)
[2019-01-14] MEDS: PRILOSEC PO SCH (06:44)
[2019-01-14 06:48] LABS: AGAP 12; BUN 15 mg/dL (8-22); CALCIUM 7.4 mg/dL (8.8-10.2); CHLORIDE 97 mmol/L (98-107); COSMO 270; CREATININE 0.7 mg/dL (0.5-0.9); ESTIMATED GFR > 60; GLUCOSE 116 mg/dL (70-104); MAGNESIUM 1.8 mg/dL (1.5-2.7); PHOSPHORUS 2.5 mg/dL (2.7-4.5); POTASSIUM 4.4 mmol/L (3.5-5.1); SODIUM 134 mmol/L (136-145); TCO2 25 mmol/L (25-35)
--- NOTE | 2019-01-14 07:19 | EKG Report ---
Test Performed on : 01/14/2019 06:51:05 AM Test Reason : afib Blood Pressure : / mmHG Vent. Rate : 112 BPM Atrial Rate : 166 BPM P-R Int : 000 ms QRS Dur : 086 ms QT Int : 348 ms P-R-T Axes : 000 017 145 degrees QTc Int : 475 ms Atrial fibrillation. with rapid ventricular response. with premature ventricular or aberrantly conduc cheryl complexes. ST & T wave abnormality, consider lateral ischemia Abnormal ECG When compared with ECG of 11-JAN-2019 17:40, ST no longer depressed in Anterolateral leads T wave inversion no longer evident in Inferior leads T wave inversion no longer evident in Anterior leads Confirmed by Yonas Guzman MD ([id number]) on 01/14/2019 11:08:10 PM
[2019-01-14] MEDS: MIRALAX PO SCH (08:23)
[2019-01-14] MEDS: ELIQUIS PO SCH ×2 (08:24→21:23)
[2019-01-14] MEDS: TOPROL XL PO SCH (08:24)
[2019-01-14] MEDS: ICAR-C PO SCH ×2 (08:24→21:23)
[2019-01-14] MEDS: FOLIC ACID PO SCH (08:25)
[2019-01-14] MEDS: VITAMIN B-12 SL SCH (08:25)
[2019-01-14] MEDS: NEUTRA-PHOS PO SCH ×4 (08:25→21:23)
[2019-01-14] MEDS: LANTUS INSULIN SUBQ SCH ×2 (08:25→21:24)
[2019-01-14] MEDS: ROCEPHIN 1 GM in NS 50 ML IV SCH (08:26)
--- NOTE | 2019-01-14 08:51 | PROGRESS NOTE ---
DATE: 01/14/2019 SUBJECTIVE: This patient seems to be feeling better. No acute events overnight. Her heart rate has been elevated today on the monitor between 120s and 140s. OBJECTIVE: Vital Signs: Temperature 98.3 degrees, pulse on the monitor right now 122, blood pressure 142/99, oxygen saturation 99 on 2 L of nasal cannula. HEENT: Head normocephalic, no trauma. PERRLA. Neck: Supple. No JVD. No masses. Central trachea. Chest: Decreased breath sounds at the bases with some crepitus. Cardiovascular: Irregularly irregular rate and rhythm. Abdomen: Soft, nontender, nondistended. No hepatosplenomegaly. Extremities: Trace lower extremity edema bilaterally. She does have a dressing on the left side of the hip with some serous discharge. No signs of infection. The wound looks good. Neurological examination: The patient is alert. She is oriented. No focal deficits. LABORATORY: WBC 8.7, hemoglobin 7.9, hematocrit 26.7, platelets 464. Sodium 134, potassium 4.4, chloride 97, bicarbonate 25. BUN 15, creatinine 0.7 glucose 116, calcium 7.4, phosphorus 2.5, magnesium 1.8. ASSESSMENT AND PLAN: 1. Acute hypoxemic respiratory failure. This is getting better. Continue oxygen supplementation for now. We will try to wean this patient off oxygen. 2. Acute pulmonary edema, improving. Chest x-ray did not show any infiltrates, no effusion identified. We will continue with same management. 3. Folic acid and B 12 deficiency. Continue to replace. 4. Urinary tract infection secondary to Escherichia coli, continue with ceftriaxone. 5. Atrial fibrillation with rapid ventricular response. Cardiology on board. At this moment, her heart rate has been up, around 120s to 140s. She is not symptomatic, though. I will wait for Cardiology recommendations. 6. Hypomagnesemia and hypokalemia, resolved. 7. Hypothyroidism. Continue with Synthroid. 8. Constipation. Continue with stool softeners. She has been getting docusate and MiraLAX. 9. Hypophosphatemia. Continue with same management. 10. Status post open reduction and intramedullary nailing of the left femur/left hip fracture, aware. Orthopedic Surgery following this patient. Likely the patient will need to go to a rehabilitation center. 11. Type 2 diabetes. Continue with sliding scale insulin. 12. Deep vein thrombosis prophylaxis with Lovenox. 13. Continue physical therapy and occupational therapy. Once Cardiology Department states that this patient can be discharged to a rehabilitation center, we will do it, but the heart rate has been in the 120s or 140s, at least this morning. cc: Venkatesh Ortiz MD
[2019-01-14] MEDS ORDERED: CARDIZEM CD PO SCH (09:00)
[2019-01-14] MEDS: XOPENEX NEB INH SCH ×3 (11:16→22:09)
[2019-01-14] MEDS: LANOXIN IV SCH ×2 (12:55→15:26)
[2019-01-14] MEDS: BETAPACE PO SCH ×2 (12:58→21:23)
--- NOTE | 2019-01-14 20:29 | EKG Report ---
Test Performed on : 01/14/2019 5:34:21 PM Test Reason : rhythm change Blood Pressure : / mmHG Vent. Rate : 118 BPM Atrial Rate : 096 BPM P-R Int : 000 ms QRS Dur : 084 ms QT Int : 306 ms P-R-T Axes : 000 -07 158 degrees QTc Int : 428 ms Accelerated Junctional rhythm. with frequent premature ventricular complexes. ST & T wave abnormality, consider lateral ischemia Abnormal ECG When compared with ECG of 14-JAN-2019 06:51, (Unconfirmed) Junctional rhythm. has replaced Atrial fibrillation. Nonspecific T wave abnormality now evident in Anterior leads Confirmed by Yonas Guzman MD ([id number]) on 01/14/2019 11:10:08 PM
[2019-01-14] MEDS ORDERED: LANOXIN IV ONE (20:30)
[2019-01-14] MEDS: COLACE PO SCH (21:23)
--- NOTE | 2019-01-14 21:45 | ORTHOPAEDICS PROGRESS NOTE ---
DATE: 01/14/2019 SUBJECTIVE: No acute events overnight. Patient remains in atrial fibrillation and is on a Cardizem drip. Cardiology is planning possible cardioversion on if she does not convert. In regards to her hip, the patient has no complaints. States pain is improving. She has not ambulated much with physical therapy secondary to her uncontrolled atrial fibrillation. LABORATORY DATA: Hematocrit is 27, stable. OBJECTIVE: Extremity: Left lower extremity shows surgical dressing is clean, dry, and intact to the left hip. Thigh is soft and compressible. Minimal pain with log roll of the hip. No pain in her knee, leg, ankle or foot. Motor intact EHL, tibialis anterior, gastrocsoleus complex. Sensation intact to light touch L3 to S1. Dorsalis pedis pulse palpable. Calf soft and compressible. ASSESSMENT: An 88-year-old female status post open reduction and intramedullary nailing, left hip fracture. Postop day 5. PLAN: 1. Patient to be weightbearing as tolerated, left lower extremity. Encouraged patient to work with Physical Therapy as soon as she is cleared to do so by her primary team. 2. Eliquis for DVT prophylaxis. 3. Ice to the left thigh as needed. 4. Okay to sponge bathe around incisions. Once the patient is able to get in the shower, it is okay from Ortho standpoint for wound to get wet. However, no soaking in a bath or submerging in water. 5. Disposition per primary team. Once patient is cleared and has her atrial fibrillation under control, plan is for discharge to inpatient rehab facility. I will see her back in clinic in 2 weeks for wound check and serial x-rays.
[2019-01-14] MEDS: OXY IR PO PRN (23:10)
--- NOTE | 2019-01-14 23:54 | EKG Report ---
Test Performed on : 01/14/2019 11:33:48 PM Test Reason : rhythm change Blood Pressure : / mmHG Vent. Rate : 056 BPM Atrial Rate : 056 BPM P-R Int : 168 ms QRS Dur : 082 ms QT Int : 428 ms P-R-T Axes : 031 012 122 degrees QTc Int : [address] & T wave abnormality, consider lateral ischemia Abnormal ECG When compared with ECG of 14-JAN-2019 17:34, Sinus rhythm. has replaced Junctional rhythm. Vent. rate has decreased BY 62 BPM Confirmed by Megan BALDERAS, Yonas Simeon ([id number]) on 01/16/2019 3:38:55 PM
[2019-01-15] MEDS: TYLENOL PO SCH (06:03)
[2019-01-15] MEDS: SYNTHROID PO SCH (06:03)
[2019-01-15] MEDS: PRILOSEC PO SCH (06:04)
[2019-01-15] MEDS: HUMULIN R SUBQ SCH ×2 (06:04→12:42)
[2019-01-15 06:20] LABS: HEMATOCRIT 29.3 % (37.0-47.0); HEMOGLOBIN 8.6 g/dL (12.0-16.0)
[2019-01-15 06:51] LABS: AGAP 14; BUN 16 mg/dL (8-22); CALCIUM 8.3 mg/dL (8.8-10.2); CHLORIDE 98 mmol/L (98-107); COSMO 270; CREATININE 0.7 mg/dL (0.5-0.9); ESTIMATED GFR > 60; GLUCOSE 108 mg/dL (70-104); POTASSIUM 4.1 mmol/L (3.5-5.1); SODIUM 134 mmol/L (136-145); TCO2 22 mmol/L (25-35)
[2019-01-15] MEDS ORDERED: MAGNESIUM SULFATE 2 GM/S.W.I. 2 GM/50 ML IVPB IV ONE (07:02)
--- NOTE | 2019-01-15 07:12 | EKG Report ---
Test Performed on : 01/15/2019 06:23:33 AM Test Reason : afib with rvr Blood Pressure : / mmHG Vent. Rate : 060 BPM Atrial Rate : 060 BPM P-R Int : 152 ms QRS Dur : 084 ms QT Int : 434 ms P-R-T Axes : 079 010 118 degrees QTc Int : 434 ms Sinus rhythm. with premature supraventricular complexes. ST & T wave abnormality, consider lateral ischemia Abnormal ECG When compared with ECG of 14-JAN-2019 23:33, (Unconfirmed) premature supraventricular complexes. are now present Confirmed by Yonas Guzman MD ([id number]) on 01/16/2019 3:39:12 PM
[2019-01-15] MEDS: LANTUS INSULIN SUBQ SCH (08:23)
[2019-01-15] MEDS: ROCEPHIN 1 GM in NS 50 ML IV SCH (08:23)
[2019-01-15] MEDS: MIRALAX PO SCH (08:23)
[2019-01-15] MEDS: VITAMIN B-12 SL SCH (08:24)
[2019-01-15] MEDS: FOLIC ACID PO SCH (08:24)
[2019-01-15] MEDS: NEUTRA-PHOS PO SCH ×2 (08:24→12:48)
[2019-01-15] MEDS: ELIQUIS PO SCH (08:25)
[2019-01-15] MEDS: ICAR-C PO SCH (08:25)
[2019-01-15] MEDS: BETAPACE PO SCH (08:30)
[2019-01-15] MEDS ORDERED: CARDIZEM CD PO SCH (09:00)
--- NOTE | 2019-01-15 09:10 | DISCHARGE SUMMARY ---
ADMISSION DATE: 01/08/2019 DISCHARGE DATE: 01/15/2019 DISCHARGE DIAGNOSES: 1. Acute hypoxemic respiratory failure. 2. Pulmonary edema, improved. 3. Left hip fracture, status post open reduction and intramedullary nailing. 4. Atrial fibrillation with rapid ventricular response, now converted to sinus rhythm. 5. Urinary tract infection secondary to Escherichia coli, already treated for 5 days with IV antibiotics. 6. Hypomagnesemia and hypokalemia, better. 7. Hypothyroidism. 8. Constipation. 9. Type 2 diabetes. 10. Generalized weakness. 11. History of TIA. PROCEDURES PERFORMED: 1. Head and cervical spine CT scan dated 01/08/2019. Impression- no hemorrhage, no injury, no acute fracture. 2. Hip, pelvis x-ray dated 01/08/2019. Impression- intertrochanteric fracture to the left hip. 3. Femur x-ray dated 01/08/2019. Impression- intertrochanteric fracture to the left hip. 4. Pelvis CT scan dated 01/08/2019. Impression- intertrochanteric fracture of the left hip. 5. Chest x-ray dated 01/08/2019. Impression- pulmonary edema. 6. Hip pelvis x-ray dated 01/09/2019. Impression- no complication. There is a new left femoral neck stabilization evan. No hardware fracture or loosening. No dislocation. The right side is unremarkable. 7. Open reduction and intramedullary nailing of the left peritrochanteric femur fracture dated 01/09/2019. 8. Chest x-ray dated 01/10/2019. Impression- interval improvement. 9. Chest CT scan dated 01/10/2019. Impression- cardiomegaly mild with mild interstitial pulmonary edema. 10. Chest x-ray dated 01/11/2019. Impression- stable chest. 11. Chest x-ray dated 01/13/2019. Impression- negative exam. CONSULTATIONS: 1. Orthopedic Surgery Department, Dr. Aguila Boss. 2. Cardiology Department Dr. Metzger. HOSPITAL COURSE: An 88-year-old female with a past medical history of hypertension, hyperlipidemia, diabetes, TIA, admitted on 01/08/2019 after a fall. Apparently, she was watering her strong and then somehow she fell. She landed on the concrete. She started having pain at the level of the left hip region with some deformity. She was brought to the emergency department. X-ray showed left hip fracture, case discussed with Orthopedic surgery, which took this patient the next day to the operating room to do an open reduction and intramedullary nailing of the fracture. At the beginning, this patient also presented with some pulmonary edema that resolved basically after getting some diuretics. Also during the course of her hospitalization, this patient started having atrial fibrillation with rapid ventricular response. Cardiology Department was involved and they treated this patient with only medications. At some point we thought about doing some cardioversion, but after some treatment, she converted to sinus rhythm, slightly bradycardic. Today this patient is feeling much better. She can be discharged to a rehab center. Cardiology Department already readjusted her medications. I discussed with Dr. Barton that the patient was taking aspirin and Plavix before coming to the hospital. We will stop the aspirin and we will continue with the Plavix. Also she has been on anticoagulation due to her atrial fibrillation. The patient seems to be stable. She is completely alert, awake and oriented x3. She will be discharged today. PHYSICAL EXAMINATION: Vital signs: Temperature 98.4 degrees, pulse 65, respiratory rate 19, blood pressure 127/57. Oxygen saturation 99% on 2 L of nasal cannula. HEENT: Head normocephalic, no trauma. PERRLA. Neck: Is supple, no JVD. No masses. Central trachea. Chest: Clear to auscultation. No wheezing. No rales. Cardiovascular: RRR. Abdomen: Soft, nontender, nondistended. No hepatosplenomegaly. Extremities: Left hip is covered with a dressing, is painful to palpation and mobilization. No signs of neurovascular lesions. Neurological: On examination the patient is alert. She is oriented x3. She moves all 4 extremities. LABORATORY: Hemoglobin 8.6, hematocrit 29.3. Sodium 134, potassium 4.1, chloride 98, bicarbonate 24, BUN 16, creatinine 0.7 glucose 108, calcium 8.3, magnesium 1.6. DISCHARGE MEDICATIONS: 1. Eliquis 2.5 mg p.o. b.i.d. 2. Vitamin D3 1000 units p.o. daily. 3. Plavix 75 mg p.o. q.a.m. 4. Vitamin B12 sublingual 2500 mcg sublingual daily. 5. Diltiazem 120 mg p.o. daily. 6. Colace 200 mg p.o. at bedtime. 7. Folic acid 1 mg p.o. daily. 8. Lantus 8 units subcutaneous b.i.d. 9. Icar C1 tab p.o. b.i.d. 10. Levothyroxine 75 mcg p.o. q.a.m. 11. Milk of Magnesia 30 mL p.o. daily as needed for constipation. 12. Metformin 500 mg p.o. t.i.d. 13. Singulair 10 mg p.o. at bedtime. 14. Omeprazole 40 mg p.o. q.a.m. 15. Oxy IR 5 mg p.o. q.3 hours as needed for pain. 16. MiraLAX 17 g p.o. daily. 17. Pravastatin 40 mg p.o. at bedtime. 18. Sotalol 80 mg p.o. b.i.d. 19. Zolpidem 10 mg p.o. at bedtime as needed for insomnia. TIME SPENT: Time discharging this patient 35 minutes. cc: Venkatesh Ortiz MD
[2019-01-15] MEDS: XOPENEX NEB INH SCH (10:29)
[2019-01-15 11:15] VITALS: BP 175/77
--- NOTE | 2019-01-17 20:35 | Extremity Venous Study ---
PROCEDURE NAME: Venous U/S Bilateral Legs - 01/12/2019 SOLUTION DESIGNER: Travon. REQUESTING PHYSICIAN: Dora. INDICATION: Hip fracture and swelling. FINDINGS: Deep and superficial veins of bilateral lower extremities were visualized along their course. All vessels appeared compressible with forward flow. No evidence of intraluminal thrombus. SUMMARY: No deep or superficial venous thrombosis seen in bilateral lower extremities. cc: MD Silvana Valadez MD
== END 2019-01-15 14:14 | DRG 480 ==
LOC: SUPCPDRO → ED 16:56 → 4N 21:36 → SUATTDRO 21:36 → 4N 23:26 → 2N 01-10 08:25
PROVIDERS: ATTEND Internal Medicine